=== PATIENT | male | born 1965 | race Asian ===

== ENCOUNTER 2020-03-21 14:32 | Inpatient (IN) | payer MEDICARE, OTHER ==
[~2020-03-21] VITALS: Ht 167.6 cm; Wt 72.1 kg
[2020-03-21] MEDS ORDERED: SODIUM CHLORIDE 0.9% 1,000 ML IV ONE (14:50)
[2020-03-21 15:36] LABS: Basophils # (auto) 0 10 ^3/uL (0-0.2); Basophils % (auto) 0.2 % (0.0-2.0); Eosinophils # (auto) 0 10 ^3/uL (0-0.8); Hematocrit 29.5 % (41.0-53.0); Hemoglobin 10.1 g/dL (13.5-17.5); Mean Corpuscular Hemoglobin 35.7 pg (28.0-32.0); Mean Corpuscular Hgb Conc. 34.3 g/dL (32.0-36.0); Monocytes # (auto) 0.7 10 ^3/uL (0-1.3); Neutrophils # (auto) 1.7 10 ^3/uL (1.6-8.6); Nucleated Red Blood Cells % 0.1 %; Red Blood Cells 2.84 10^6/uL (4.5-5.90); White Blood Cell 4.3 10^3/uL (4.4-10.8)
[2020-03-21 15:38] LABS: Eosinophils % (auto) 0.9 % (0.0-7.0); Mean Corpuscular Volume 104.1 fL (80.0-100.0); Monocytes % (auto) 15.5 % (0.0-12.0); Neutrophils % (auto) 38.4 % (37.0-80.0); Platelet Count (auto) 138 10^3/uL (140-450); Red Cell Distribution Width 12.9 % (11.8-14.3)
[2020-03-21 15:52] LABS: Alanine Aminotransferase 9 U/L (16-61); Albumin 2.6 g/dL (3.4-5.0); Anion Gap 8 (5-15); Aspartate Aminotransferase 11 U/L (15-37); Blood Urea Nitrogen 16 mg/dL (7-18); Calcium 7.7 mg/dL (8.5-10.1); Carbon Dioxide 20 mmol/L (21-32); Chloride 113 mmol/L (98-107); GFR African American 39 mL/min; GFR Non-African American 32 mL/min; Glucose 104 mg/dL (74-106); Potassium 4.2 mmol/L (3.5-5.1); Sodium 141 mmol/L (136-145)
[2020-03-21 15:56] LABS: Alkaline Phosphatase 74 U/L (45-117); Bilirubin, Total 0.4 mg/dL (0.2-1.0); Total Protein 6.2 g/dL (6.4-8.2)
[2020-03-21 16:39] LABS: Urine WBC None Seen /hpf (0 - 3)
[2020-03-21 16:48] LABS: Urine Bacteria NONE SEEN /hpf (None Seen); Urine Blood Negative /uL (Negative); Urine Specific Gravity 1.002 (1.001-1.035)
[2020-03-21] MEDS ORDERED: MORPHINE SULF INJ 2 MG/ML SYRINGE 1ML IV PRN ×2 (18:15→19:30)
[2020-03-21] MEDS ORDERED: NITROGLYCERIN 0.4 MG SL TAB SL PRN (18:15)
[2020-03-21] MEDS ORDERED: ACETAMINOPHEN 500 MG TAB PO PRN (19:30)
[2020-03-21] MEDS ORDERED: TEMAZEPAM 15 MG CAP PO PRN (19:30)
[2020-03-21] MEDS ORDERED: ONDANSETRON HCL 4 MG/2 ML VIAL IV PRN (19:30)
[2020-03-21] MEDS ORDERED: traMADol HCL 50 MG TAB PO PRN (19:30)
[2020-03-21] MEDS: SODIUM CHLORIDE 0.9% 1,000 ML IV SCH ×2 (20:01→22:08)
[2020-03-21 21:20] VITALS: BP 137/87
--- NOTE | 2020-03-21 21:20 | NUR ---
Telemetry admit from ER CONNERNITIN admitted to Telemetry unit; no SBAR received. Patient oriented by SON VAN, primary RN, unit, room, and bed. Patient now on continuous telemetry monitoring, tele box # and telemetry reading on arrival to unit is []. Patient O2 sat 98% pm room air, weighed by bedscale and shown how to call, using nurse call light if he needs something. Instructed 3 times while RN at bedside. Pt mentation slow. All questions and concerns addressed, patient verbalized desire to go home. This RN explained that he is sick and has to stay in hospital tonight, so he can improve and go home. Pt agreed.
[2020-03-22] MEDS: levETIRAcetam 500 MG TAB PO SCH ×3 (00:37→21:55)
[2020-03-22] MEDS: GEMFIBROZIL 600 MG TAB PO SCH ×3 (00:37→21:55)
[2020-03-22] MEDS: traZODone HCL 50 MG TAB PO SCH ×2 (00:38→21:55)
[2020-03-22] MEDS: QUEtiapine FUMARATE 100 MG TAB PO SCH ×2 (00:38→21:56)
[2020-03-22] MEDS: METOPROLOL TARTRATE 50 MG TAB PO SCH ×3 (00:40→21:55)
--- NOTE | 2020-03-22 01:02 | NUR ---
technologist development called to report pt's HR sustaining in 130s. Pt had just been talking to Cj, the ownr of the facility where he lives. Pt cried, then stopped and took meds and rank two apple juices and water. Pt denies feelings of weakness, dizzines or any other discomfort.
--- NOTE | 2020-03-22 01:20 | NUR ---
Pt up to BR to void; accompanied by this RN. Taking short steps. Does not have full use/ROM of R arm. Voided large amount in toilet, pushing and grunting softly while voiding. Pt stated that he does have trouble urinating. Assisted back into bed. HR down to 120s and now 108.
[2020-03-22 02:04] VITALS: BP 137/87
[2020-03-22 05:00] VITALS: BP 128/94
--- NOTE | 2020-03-22 07:40 | NUR ---
Opening Note Assumed pt care from BRITNEY RN. Pt is a/ox3-4; pt is aware of name and time of day but mildly confused. Pt is able to answer questions with mild delay. Assessed schedule announcer; strong bilaterally on upper and lower extremities. Pt is currently sitting upright in bed with mild c/o abdominal pain; discussed available treatments options. Discussed POC with pt and pending consults. Safety measures maintained with call light within reach, bed in lowest position, side rails up and bed alarm on. Will continue to monitor for changes.
--- NOTE | 2020-03-22 08:13 | NUR ---
Seizure Precautions Initiated
--- NOTE | 2020-03-22 08:19 | NUR ---
Dr Dewey At Bedside MD to see pt. Per MD, pt is most likely constipated, no urinary obstruction noted. No new orders at this time. Will continue to monitor.
--- NOTE | 2020-03-22 08:30 | NUR ---
EKG Complete Per MD's Orders Strip is placed in front of chart. Will have attending view strip.
[2020-03-22 09:00] VITALS: BP 162/90
[2020-03-22] MEDS: LOSARTAN POTASSIUM 50 MG TAB PO SCH (09:23)
--- NOTE | 2020-03-22 09:43 | NUR ---
Patient Caregiver Update Pt's Caregiver from [facility], Cj [phone], called for an update. Updated caregiver on POC. Caregiver requested that when MD rounds, to call him for update on pt's status and further POC. Will notify MD upon rounding.
--- NOTE | 2020-03-22 12:11 | NUR ---
Dr Stewart at Bedside MD to see pt. New orders given, read back and verified. Will implement.
[2020-03-22] MEDS: SODIUM CHLORIDE 0.9% 1,000 ML IV SCH (12:20)
[2020-03-22] MEDS ORDERED: LACTULOSE 20Gm/30ML SOLN PO ONE (12:30)
[2020-03-22 13:00] VITALS: BP 110/81
[2020-03-22] MEDS ORDERED: FLEET ENEMA(ADULT) 135 ML PR ONE (14:00)
--- NOTE | 2020-03-22 15:30 | NUR ---
Pt Had Large BM Pt states that he feels "much better". Will continue to monitor.
[2020-03-22 17:00] VITALS: BP 123/70
[2020-03-22 21:33] LABS: BUN/Creatinine Ratio 7.5; Potassium 4.3 mmol/L (3.5-5.1)
[2020-03-22] MEDS: LACTULOSE 20Gm/30ML SOLN PO SCH (21:55)
[2020-03-22 22:00] VITALS: BP 125/78
[2020-03-23] MEDS: SODIUM CHLORIDE 0.9% 1,000 ML IV SCH (02:59)
[2020-03-23 05:48] VITALS: BP 107/72
--- NOTE | 2020-03-23 07:46 | NUR ---
Opening Note Assumed pt care from NOC RN. Pt is a/ox3-4; pt is aware of name and time of day but mildly confused. Pt is able to answer questions with mild delay. Assessed broadband technician; strong bilaterally on upper and lower extremities. Pt is currently sitting upright in bed . Discussed POC with pt and pending consults. Safety measures maintained with call light within reach, bed in lowest position, side rails up and bed alarm on. Will continue to monitor for changes.
[2020-03-23 09:00] VITALS: BP 130/79
[2020-03-23] MEDS: LACTULOSE 20Gm/30ML SOLN PO SCH (09:08)
[2020-03-23] MEDS: LOSARTAN POTASSIUM 50 MG TAB PO SCH (09:08)
[2020-03-23] MEDS: levETIRAcetam 500 MG TAB PO SCH (09:09)
[2020-03-23] MEDS: GEMFIBROZIL 600 MG TAB PO SCH (09:09)
[2020-03-23] MEDS: METOPROLOL TARTRATE 50 MG TAB PO SCH (09:10)
--- NOTE | 2020-03-23 12:10 | NUR ---
md paz rounding on pt will discharge pt
--- NOTE | 2020-03-23 12:11 | NUR ---
paged md stout to clarify orders to insert mak catheter, per md paz do not do that he will be discharging pt
[2020-03-23 13:00] VITALS: BP 100/69
[2020-03-23 13:26] LABS: Basophils # (auto) 0 10 ^3/uL (0-0.2); Eosinophils # (auto) 0.1 10 ^3/uL (0-0.8); Hemoglobin 10.7 g/dL (13.5-17.5); Neutrophils # (auto) 2.9 10 ^3/uL (1.6-8.6)
[2020-03-23 13:28] LABS: Basophils % (auto) 0.5 % (0.0-2.0); Eosinophils % (auto) 2.3 % (0.0-7.0); Hematocrit 31.7 % (41.0-53.0); Lymphocytes # (auto) 2.2 10 ^3/uL (0.4-5.4); Lymphocytes % (auto) 34.3 % (10.0-50.0); Mean Corpuscular Hemoglobin 35.6 pg (28.0-32.0); Mean Corpuscular Hgb Conc. 33.7 g/dL (32.0-36.0); Mean Corpuscular Volume 105.7 fL (80.0-100.0); Monocytes # (auto) 1.2 10 ^3/uL (0-1.3); Monocytes % (auto) 17.8 % (0.0-12.0); Neutrophils % (auto) 45.1 % (37.0-80.0); Nucleated Red Blood Cells % 0.1 %; Platelet Count (auto) 148 10^3/uL (140-450); Red Cell Distribution Width 13.1 % (11.8-14.3); White Blood Cell 6.5 10^3/uL (4.4-10.8)
[2020-03-23 13:51] LABS: BUN/Creatinine Ratio 9.4; Calcium 8.9 mg/dL (8.5-10.1); Potassium 4.5 mmol/L (3.5-5.1)
--- NOTE | 2020-03-23 14:29 | NUR ---
pt discharged home picked up by investigator cash shortage
--- NOTE | 2020-03-23 16:25 | NUR ---
Pt is an alert but mentally delayed male that resides a residential in [place] ( setup through the [facility]). Pt functions independently in home and uses no medical equipment. Spoke with Cj, facility research and development tester, who confirmed pt can return upon discharge and they will provide transportation. Addendum: 03/23/20 at 1626 by CASSY LOPEZ SS Amended: Links added.
== END 2020-03-23 14:15 | disposition home or self-care (01) | DRG 391 ==
LOC: ER 14:32 → EDBD 14:32 → TELE 14:33 → TELE-WESTW 21:16
PROVIDERS: ADMIT Internal Medicine; ATTEND Family Medicine
DX: K59.00 Constipation, unspecified (principal); G92 Toxic encephalopathy; N17.9 Acute kidney failure, unspecified; E44.0 Moderate protein-calorie malnutrition; N18.9 Chronic kidney disease, unspecified; D64.9 Anemia, unspecified; E78.5 Hyperlipidemia, unspecified; E86.0 Dehydration; I12.9 Hypertensive chronic kidney disease with stage 1 through stage 4 chronic kidney disease, or unspecified chronic kidney disease; R00.0 Tachycardia, unspecified; R33.9 Retention of urine, unspecified; Z68.25 Body mass index [BMI] 25.0-25.9, adult; Z88.8 Allergy status to other drugs, medicaments and biological substances; R62.50 Unspecified lack of expected normal physiological development in childhood
CPT/HCPCS: 36415; 70450; 71045; 74176; 76775; 80048; 80053; 81001; 82306; 82550; 83880; 83970; 84100; 84443; 84484; 85025; 85379; 85652; 93005; G0378